=== PATIENT | male | born 1975 | race Caucasian/White ===

== ENCOUNTER 2019-12-20 20:40 | Emergency (ER) | payer BC ==
--- NOTE | 2019-12-20 21:33 | EDM.PDOC ---
ED HPI GENERAL MEDICAL PROBLEM - General Chief Complaint: Laceration Stated Complaint: CUT MIDDLE FINGER ON LEFT HAND Time Seen by Provider: 12/20/19 20:58 Source of Information: Reports: Patient History Limitations: Reports: No Limitations - History of Present Illness INITIAL COMMENTS - FREE TEXT/NARRATIVE: Mr. Lopez is a very pleasant 44-year-old gentleman who now presents the ED with a left 3rd finger laceration. He states that he accidentally lacerated the volar aspect of his distal left 3rd finger while drying a kitchen knife around 20:00 this evening. He is otherwise uninjured. Other than washing the wound, he did not perform any other home treatments prior to coming to the ED. The patient states that his last tetanus vaccination was somewhere between 3 and 5 years ago. Here in the ED, the patient is found to be hemodynamically stable, afebrile, saturating 97% on room air. Other than lai's finger laceration, the patient denies having a recent fever, chills, sore throat, ear pain, nasal or sinus congestion, cough, dyspnea, chest pain, palpitations, nausea, vomiting, constipation, diarrhea, abdominal pain, urinary symptoms, recent weight gain or weight loss, recent bloody bowel movements or black bowel movements, recent joint aches, headaches, or rashes. The patient's PCP is ALISSA Jarquin. The patient did not receive an influenza vaccine this season, and declined an offer to receive one here lai. - Related Data Allergies Allergy/AdvReac Type Severity Reaction Status Date / Time No Known Allergies Allergy Verified 12/20/19 20:57 Home Meds: Home Meds . [No Known Home Meds] 12/20/19 [History] Past Medical History HEENT History: Reports: Impaired Vision - Past Surgical History HEENT Surgical History: Reports: Naso-Sinus Surgery (deviated septum), Oral Surgery (dental extractions) Respiratory Surgical History: Reports: Other (See Below) (Lung biopsy via neck - benign) GI Surgical History: Reports: Appendectomy, Cholecystectomy (2016) Social & Family History - Family History Family Medical History: No Pertinent Family History - Tobacco Use Tobacco Use Status *Q: Never Tobacco User - Caffeine Use Caffeine Use: Reports: Coffee - Alcohol Use Alcohol Use History: Yes Alcohol Use Frequency: Socially - Recreational Drug Use Recreational Drug Use: No - Living Situation & Occupation Living situation: Reports: , with Spouse, with Family (3 kids) Occupation: Employed (Owns auto body repair shop) ED ROS GENERAL - Review of Systems Review Of Systems: Comprehensive ROS is negative, except as noted in HPI. ED EXAM, SKIN/RASH Exam: See Below Exam Limited By: No Limitations General Appearance: Alert, WD/WN, No Apparent Distress Extremities: Other (There is an approximately 1.25 cm linear laceration running tangential to the left third finger, just distal to the volar aspect of the DIP joint. The patient reports a slightly unusual tactile sensation to his distal phalanx. Strong flexion at the DIP joint.) ED SKIN PROCEDURES - Laceration/Wound Repair Left Hand Appearance: Subcutaneous, Linear, Clean Distal NVT: No Tendon Injury, Other (Slight paresthesia to distal phalanx) Skin Prep: Saline Exploration/Debridement/Repair: Wound Explored, In a Bloodless Field, Explored to Base, No Foreign Material Found Closed with: Dermabond Lac/Wound length In cm: 1.3 Drain Placement: No Sterile Dressing Applied: None Tetanus Status Addressed: Yes Complications: No Course - Vital Signs Last Recorded V/S: Last Vital Signs Temp 36.2 C 12/20/19 20:59 Pulse 86 12/20/19 20:59 Resp 16 12/20/19 20:59 BP 130/93 H 12/20/19 20:59 Pulse Ox 97 12/20/19 20:59 - Re-Assessments/Exams Free Text/Narrative Re-Assessment/Exam: 12/20/19 21:27 As above, the patient sustained an approximately 1.25 cm linear laceration to the volar aspect of his left 3rd finger, just distal to the DIP joint. The edges of the wound approximate very nicely if there is even minimal flexion of the DIP joint, therefore it was a good candidate for closure with Dermabond, which I applied. The patient tolerated the procedure well. Lyndsey JOHNSON will now apply a dorsal AlumaFoam splint, which will help keep the DIP joint in slight flexion. The patient can keep this on overnight, allowing the Dermabond to fully dry. In the morning, he can bathe as normal, then apply a Band-Aid over the Dermabond, if he wishes. Departure - Departure Time of Disposition: 21:28 Disposition: Home, Self-Care 01 Condition: Good Clinical Impression: Laceration of left middle finger - Discharge Information *PRESCRIPTION DRUG MONITORING PROGRAM REVIEWED*: Not Applicable *COPY OF PRESCRIPTION DRUG MONITORING REPORT IN PATIENT KAMRAN: Not Applicable Instructions: Laceration Care, Adult, [id number] Referrals: Leeanne Gross PA-C [Ordering Only Provider] - Forms: ED Department Discharge Additional Instructions: You were seen in the emergency room after accidentally cutting your left middle finger. Your wound was closed with Dermabond. Your left middle finger has been placed into an AlumaFoam splint. Keep this on overnight. In the morning, you may bathe as usual, however, do not pick at the glue. Pat dry, then you can apply a Band-Aid to help protect the glue. Allow the glue to flake off on its own over the next several days to a 1 week. The likelihood of developing an infection in the wound is extremely low, however, if you do develop any concerning signs, such as swelling, redness, inordinate pain, or drainage, please do not hesitate to return to the ER for reevaluation. Sepsis Event Note (ED) - Evaluation Sepsis Screening Result: No Definite Risk - Focused Exam Vital Signs: Vital Signs Temp Pulse Resp BP Pulse Ox 12/20/19 20:59 36.2 C 86 16 130/93 H 97
== END 2019-12-20 21:38 | disposition home or self-care (01) ==
LOC: JD.ED 20:40
DX: S61.213A Laceration without foreign body of left middle finger without damage to nail, initial encounter (principal); W26.0XXA Contact with knife, initial encounter
CPT/HCPCS: 12001; 99282; 99282-25